=== PATIENT | male | born 1945 | race Caucasian/White ===

== ENCOUNTER 2021-02-02 14:12 | Emergency (ER) | payer MEDICARE ==
[2021-02-02] MEDS ORDERED: Dextrose 5%-Lactated Ringers 1,000 ML IV SCH (14:45)
[2021-02-02 15:02] LABS: ACETAMINOPHEN <2.0 ug/mL; BLOOD UREA NITROGEN,BUN 15 mg/dL (7.0-18.0); CARBON DIOXIDE,CO2 28.2 mmol/L (21.0-32.0); CHLORIDE,CL 101 mmol/L (98-107); GLUCOSE RANDOM 120 mg/dL (74-106); LIPASE 68 U/L (73-393); POTASSIUM,K 3.7 mmol/L (3.5-5.1); SODIUM,NA 137 mmol/L (136-148)
--- NOTE | 2021-02-02 15:08 | EDM.PDOC ---
ED HPI GENERAL MEDICAL PROBLEM - General Chief Complaint: General Stated Complaint: POSSIBLE STOKE Time Seen by Provider: 02/02/21 14:18 - History of Present Illness INITIAL COMMENTS - FREE TEXT/NARRATIVE: CHIEF COMPLAINT(S): Confusion HISTORY OF PRESENT ILLNESS: This is a 75-year-old man without any reported past medical history comes to the emergency department with a chief complaint of confusion. The patient states that he does not think that he is confused and was sent here by me. He states that his neck thinks that he is having difficulty with his memory. He states that he has had some hit and miss on his memory. He states that this is going on for approximately 2 weeks and he does not know what happened. He denies any head injury or loss of consciousness. He states starting 2 weeks ago he woke up one morning and felt like he was off balance and walking. He states that he had any food or drink for the last 2 weeks as nonstop which is nonbloody and nonbilious. He denies any chest pain, shortness of breath, abdominal pain. He states that today though he does not feel like he is falling or confused. He states that he does not feel the symptoms at all. Per the niece: She states that she saw him approximately 1 month ago and he has lost a significant amount of weight in that time. She states that he has been getting more forgetful and does not seem to want to eat. She states that he has not been peeing as much as normal and she believes that him vomiting has been greater than 2 weeks. She states that he lives alone. REVIEW OF SYSTEMS: Constitutional: Denies fever, chills. Eyes: Denies eye pain Ears, Nose, Mouth, & Throat: Denies earache Cardiovascular: Denies chest pain Respiratory: Denies shortness of breath Gastrointestinal: Positive for vomiting. Denies nausea, diarrhea, medic easier, hematemesis, bilious emesis genitourinary: Positive for decreased urination. Denies hematuria Skin:Denies a rash MSK: Denies joint pain Neurological: Positive for trouble walking. Denies headache or blurred vision, numbness, tingling, weakness Psychiatric: Denies depression PAST MEDICAL HISTORY: As per history of present illness and as reviewed below otherwise noncontributory. SURGICAL HISTORY: As per history of present illness and as reviewed below otherwise noncontributory. SOCIAL HISTORY: As per history of present illness and as reviewed below otherwise noncontributory. FAMILY HISTORY: As per history of present illness and as reviewed below otherwise noncontributory. EXAMINATION OF ORGAN SYSTEMS/BODY AREAS: Constitutional: Blood pressure was 154/97, heart rate 115, respiratory rate 18 with an oxygen saturation of 98% on room air. Temperature 36.1 General: Elderly man who does not appear to be in acute distress psychiatric: Appropriate mood and affect. Eyes: No scleral icterus or conjunctival erythema prosthetic eye ENMT: Moist mucous membranes. No pharyngeal erythema bilateral tympanic membranes without effusion or erythema. Cardiovascular: Regular, rate, and rhythm. No gallops, murmurs, or rubs. Bilateral upper extremity pulses symmetric and intact. No peripheral edema. No JVD. Respiratory: Lungs clear to auscultation bilaterally. No wheezes, rales, or rhonchi. Gastrointestinal: Soft, non-tender, non-distended. Normoactive bowel sounds Genitourinary: No suprapubic tenderness Musculoskeletal: Normal range of motion. Skin: No lesions or abrasions. Neurological: AOx4. CN grossly intact. Stregth 5/5 in bilateral upper and lower extremity. Sensation is intact bilaterally in upper and lower extremity. Gait appears normal. Finger to nose, heel to ndiaye, rapid alternating movements intact. MEDICAL DECISION MAKING AND COURSE IN THE ED WITH INTERPRETATION/REVIEW OF DIAGNOSTIC STUDIES: This is a 75-year-old man without any significant past medical history who comes to the emergency department with concerns over 2 weeks of vomiting, lost weight, and memory issues who is tachycardic and borderline hypotensive who is neurologically intact and acting appropriately. At this time we did obtain screening laboratory analysis including CBC, CMP, troponin, EKG and chest x-ray. We obtain a urinalysis and will obtain a D-dimer. Is uncertain as to why the patient may have fallen or is having memory issues however pulmonary embolism is on the differential. Will obtain CT Noncon head for evaluation of any intracranial abnormality. Laboratory: CBC reveals thrombocytopenia with a platelet count of 142 otherwise unremarkable. INR is normal. D-dimer is elevated at 1.31. CMP reveals hyperglycemia at 119 and 120 otherwise unremarkable. TSH is normal. Troponin is negative. Serum salicylate and Tylenol are negative. Covid is negative. Urinalysis showed glucosuria and trace blood otherwise no abnormality. The radiological images were viewed by myself along with reading the report from the radiologist. Chest x-ray does not reveal acute cardiopulmonary process. CT head without contrast reveals no acute intracranial head or mass. There is generalized parenchymal volume loss with periventricular hyperlucency is likely reflecting chronic small vessel ischemic changes. Given the elevated D-dimer did obtain a CTA of the chest The radiological images were viewed by myself along with reading the report from the radiologist. CTA of the chest reveals no pulmonary artery embolism. There is lower lobe predominant posterior groundglass opacity with mild thickening of the small airways. After imaging to discuss results with the patient and his niece at bedside. At this time I did discuss that his work-up is normal. Given that he has not seen a primary care physician I did discuss at this time that there could be some dementia and that they need to follow with a primary care physician for further work-up and monitoring. In addition it was at this time that the patient informed the niece and I that he was drinking whiskey and that is why he was vomiting and had trouble walking. They were amenable to discharge at this time and had no further questions DISPOSITION: The patient was discharged home in stable condition. The patient will follow up with primary care physician in 3 to 5 days CONDITION: Fair PROCEDURES: None FINAL IMPRESSION(S)/DIAGNOSES: 1. acute encounter for medical screening examination Eitan Bunn M.D. - Related Data Allergies Allergy/AdvReac Type Severity Reaction Status Date / Time Unable to Assess Allergy Unverified 02/02/21 14:15 Home Meds: Home Meds . [Unable to Verify Home Med List] 02/02/21 [History] Past Medical History - Past Health History Medical/Surgical History: Denies Medical/Surgical History ED ROS GENERAL - Review of Systems Review Of Systems: See Below ED EXAM, GENERAL - Physical Exam Exam: See Below Course - Vital Signs Last Recorded V/S: Last Vital Signs Temp 36.1 C 02/02/21 14:16 Pulse 106 H 02/02/21 17:42 Resp 18 02/02/21 17:42 BP 136/75 02/02/21 17:42 Pulse Ox 98 02/02/21 17:42 - Orders/Labs/Meds Labs: Laboratory Tests 02/02/21 02/02/21 02/02/21 Range/Units 14:11 14:18 14:18 WBC 8.71 (4.0-11.0) K/uL RBC 5.27 (4.50-5.90) M/uL Hgb 17.1 H (13.0-17.0) g/dL Hct 45.5 (38.0-50.0) % MCV 86.3 (80.0-98.0) fL MCH 32.4 H (27.0-32.0) pg MCHC 37.6 H (31.0-37.0) g/dL RDW Std Deviation 39.7 (28.0-62.0) fl RDW Coeff of Rigo 13 (11.0-15.0) % Plt Count 142 L (150-400) K/uL MPV 11.60 (7.40-12.00) fL Neut % (Auto) 62.0 (48.0-80.0) % Lymph % (Auto) 27.6 (16.0-40.0) % [place] % (Auto) 7.7 (0.0-15.0) % Eos % (Auto) 2.4 (0.0-7.0) % Baso % (Auto) 0.3 (0.0-1.5) % Neut # (Auto) 5.4 (1.4-5.7) K/uL Lymph # (Auto) 2.4 (0.6-2.4) K/uL [place] # (Auto) 0.7 (0.0-0.8) K/uL Eos # (Auto) 0.2 (0.0-0.7) K/uL Baso # (Auto) 0.0 (0.0-0.1) K/uL Nucleated RBC % 0.0 /100WBC Nucleated RBCs # 0 K/uL INR 1.09 D-Dimer, Quantitative (0.0-0.50) mg/L FEU Sodium (136-148) mmol/L Potassium (3.5-5.1) mmol/L Chloride (98-107) mmol/L Carbon Dioxide (21.0-32.0) mmol/L BUN (7.0-18.0) mg/dL Creatinine (0.8-1.3) mg/dL Est Cr Clr Drug Dosing Estimated GFR (MDRD) ml/min Glucose (74-106) mg/dL POC Glucose 119 H (70-99) mg/dL Calcium (8.5-10.1) mg/dL Magnesium (1.8-2.4) mg/dL Total Bilirubin (0.2-1.0) mg/dL AST (15-37) IU/L ALT (14-63) IU/L Alkaline Phosphatase (46-116) U/L Creatine Kinase (26-308) U/L Troponin I (0.000-0.056) ng/mL Total Protein (6.4-8.2) g/dL Albumin (3.4-5.0) g/dL Globulin (2.6-4.0) g/dL Albumin/Globulin Ratio (0.9-1.6) Lipase (73-393) U/L TSH, Ultra Sensitive (0.36-3.74) uIU/mL Urine Color Urine Appearance Urine pH (5.0-8.0) Ur Specific [place] (1.001-1.035) Urine Protein (NEGATIVE) mg/dL Urine Glucose (UA) (NEGATIVE) mg/dL Urine Ketones (NEGATIVE) mg/dL Urine Occult Blood (NEGATIVE) Urine Nitrite (NEGATIVE) Urine Bilirubin (NEGATIVE) Urine Urobilinogen (<2.0) EU/dL Ur Leukocyte Esterase (NEGATIVE) Urine RBC (0-2/HPF) Urine WBC (0-5/HPF) Ur Epithelial Cells (NONE-FEW) Urine Bacteria (NEGATIVE) Salicylates (0-20) mg/dL Acetaminophen ug/mL SARS-CoV-2 RNA (JANAK) (NEGATIVE) 02/02/21 02/02/21 02/02/21 Range/Units 14:18 14:18 14:43 WBC (4.0-11.0) K/uL RBC (4.50-5.90) M/uL Hgb (13.0-17.0) g/dL Hct (38.0-50.0) % MCV (80.0-98.0) fL MCH (27.0-32.0) pg MCHC (31.0-37.0) g/dL RDW Std Deviation (28.0-62.0) fl RDW Coeff of Rigo (11.0-15.0) % Plt Count (150-400) K/uL MPV (7.40-12.00) fL Neut % (Auto) (48.0-80.0) % Lymph % (Auto) (16.0-40.0) % [place] % (Auto) (0.0-15.0) % Eos % (Auto) (0.0-7.0) % Baso % (Auto) (0.0-1.5) % Neut # (Auto) (1.4-5.7) K/uL Lymph # (Auto) (0.6-2.4) K/uL [place] # (Auto) (0.0-0.8) K/uL Eos # (Auto) (0.0-0.7) K/uL Baso # (Auto) (0.0-0.1) K/uL Nucleated RBC % /100WBC Nucleated RBCs # K/uL INR D-Dimer, Quantitative 1.31 H (0.0-0.50) mg/L FEU Sodium 137 (136-148) mmol/L Potassium 3.7 (3.5-5.1) mmol/L Chloride 101 (98-107) mmol/L Carbon Dioxide 28.2 (21.0-32.0) mmol/L BUN 15 (7.0-18.0) mg/dL Creatinine 1.3 (0.8-1.3) mg/dL Est Cr Clr Drug Dosing TNP Estimated GFR (MDRD) 54.1 ml/min Glucose 120 H (74-106) mg/dL POC Glucose (70-99) mg/dL Calcium 9.4 (8.5-10.1) mg/dL Magnesium 1.9 (1.8-2.4) mg/dL Total Bilirubin 0.9 (0.2-1.0) mg/dL AST 30 (15-37) IU/L ALT 36 (14-63) IU/L Alkaline Phosphatase 84 (46-116) U/L Creatine Kinase 177 (26-308) U/L Troponin I < 0.050 (0.000-0.056) ng/mL Total Protein 8.1 (6.4-8.2) g/dL Albumin 4.3 (3.4-5.0) g/dL Globulin 3.8 (2.6-4.0) g/dL Albumin/Globulin Ratio 1.1 (0.9-1.6) Lipase 68 L (73-393) U/L TSH, Ultra Sensitive 1.47 (0.36-3.74) uIU/mL Urine Color Urine Appearance Urine pH (5.0-8.0) Ur Specific [place] (1.001-1.035) Urine Protein (NEGATIVE) mg/dL Urine Glucose (UA) (NEGATIVE) mg/dL Urine Ketones (NEGATIVE) mg/dL Urine Occult Blood (NEGATIVE) Urine Nitrite (NEGATIVE) Urine Bilirubin (NEGATIVE) Urine Urobilinogen (<2.0) EU/dL Ur Leukocyte Esterase (NEGATIVE) Urine RBC (0-2/HPF) Urine WBC (0-5/HPF) Ur Epithelial Cells (NONE-FEW) Urine Bacteria (NEGATIVE) Salicylates 0.2 (0-20) mg/dL Acetaminophen <2.0 ug/mL SARS-CoV-2 RNA (JANAK) NEGATIVE (NEGATIVE) 02/02/21 Range/Units 16:45 WBC (4.0-11.0) K/uL RBC (4.50-5.90) M/uL Hgb (13.0-17.0) g/dL Hct (38.0-50.0) % MCV (80.0-98.0) fL MCH (27.0-32.0) pg MCHC (31.0-37.0) g/dL RDW Std Deviation (28.0-62.0) fl RDW Coeff of Rigo (11.0-15.0) % Plt Count (150-400) K/uL MPV (7.40-12.00) fL Neut % (Auto) (48.0-80.0) % Lymph % (Auto) (16.0-40.0) % [place] % (Auto) (0.0-15.0) % Eos % (Auto) (0.0-7.0) % Baso % (Auto) (0.0-1.5) % Neut # (Auto) (1.4-5.7) K/uL Lymph # (Auto) (0.6-2.4) K/uL [place] # (Auto) (0.0-0.8) K/uL Eos # (Auto) (0.0-0.7) K/uL Baso # (Auto) (0.0-0.1) K/uL Nucleated RBC % /100WBC Nucleated RBCs # K/uL INR D-Dimer, Quantitative (0.0-0.50) mg/L FEU Sodium (136-148) mmol/L Potassium (3.5-5.1) mmol/L Chloride (98-107) mmol/L Carbon Dioxide (21.0-32.0) mmol/L BUN (7.0-18.0) mg/dL Creatinine (0.8-1.3) mg/dL Est Cr Clr Drug Dosing Estimated GFR (MDRD) ml/min Glucose (74-106) mg/dL POC Glucose (70-99) mg/dL Calcium (8.5-10.1) mg/dL Magnesium (1.8-2.4) mg/dL Total Bilirubin (0.2-1.0) mg/dL AST (15-37) IU/L ALT (14-63) IU/L Alkaline Phosphatase (46-116) U/L Creatine Kinase (26-308) U/L Troponin I (0.000-0.056) ng/mL Total Protein (6.4-8.2) g/dL Albumin (3.4-5.0) g/dL Globulin (2.6-4.0) g/dL Albumin/Globulin Ratio (0.9-1.6) Lipase (73-393) U/L TSH, Ultra Sensitive (0.36-3.74) uIU/mL Urine Color YELLOW Urine Appearance CLEAR Urine pH 6.5 (5.0-8.0) Ur Specific [place] 1.010 (1.001-1.035) Urine Protein NEGATIVE (NEGATIVE) mg/dL Urine Glucose (UA) 100 H (NEGATIVE) mg/dL Urine Ketones NEGATIVE (NEGATIVE) mg/dL Urine Occult Blood TRACE-INTACT H (NEGATIVE) Urine Nitrite NEGATIVE (NEGATIVE) Urine Bilirubin NEGATIVE (NEGATIVE) Urine Urobilinogen 0.2 (<2.0) EU/dL Ur Leukocyte Esterase NEGATIVE (NEGATIVE) Urine RBC 0-1 (0-2/HPF) Urine WBC NONE SEEN (0-5/HPF) Ur Epithelial Cells RARE (NONE-FEW) Urine Bacteria NOT SEEN (NEGATIVE) Salicylates (0-20) mg/dL Acetaminophen ug/mL SARS-CoV-2 RNA (JANAK) (NEGATIVE) Meds: Medications Discontinued Medications Generic Name Dose Route Start Last Admin Trade Name Freq PRN Reason Stop Dose Admin Dextrose/Lactated Ringer's 1,000 mls @ 999 mls/hr 02/02/21 14:45 02/02/21 14:39 Dextrose 5%-Lactated Ringers IV 999 mls/hr ASDIRECTED MELVI Administration Iopamidol 100 ml 02/02/21 18:14 02/02/21 18:15 Iopamidol 755 Mg/Ml 500 Ml Multipack Bottle IVPUSH 02/02/21 18:15 100 ml ONETIME STA Administration Departure - Departure Time of Disposition: 17:14 Disposition: Home, Self-Care 01 Condition: Fair Clinical Impression: Encounter for medical screening examination - Discharge Information *PRESCRIPTION DRUG MONITORING PROGRAM REVIEWED*: No *COPY OF PRESCRIPTION DRUG MONITORING REPORT IN PATIENT VENTURA: No Instructions: Health Maintenance After Age 65, Medical Screening Exam, Dementia, [id number] Referrals: PCP,None [Primary Care Provider] - Forms: ED Department Discharge Additional Instructions: Mr. Diop you were evaluated today on an emergent basis. All of your lab work was within normal limits and the scan of your head did reveal some brain volume loss which is likely due to age otherwise no bleeding or other abnormality. The CT of your chest as discussed did show some evidence of some opacities however you do not have a fever and there is no signs of swelling on exam so I want you to monitor your self for any cough or fever or shortness of breath. If you have all of those I would like you to return to the emergency department. In addition given the short-term memory loss I do recommend that you set up a primary care physician appointment within the next week. I would discuss dementia screening and obtaining further screening labs given your age. In addition as discussed it is important that you refrain from alcohol use as this is probably why you had the vomiting and feeling unsteady with walking. Your walking today was normal. [facility] [address] [place] [id number] [facility] [address] [place] [address] The patient is informed of any results of their evaluation and diagnostic workup and all questions are answered. They are given discharge instructions and return precautions. The patient is stable for discharge. The patient states they understand and agree with the plan and that they will return if their symptoms get worse or if they have any new concerns. The following information is given to patients seen in the emergency department who are being discharged to home. This information is to outline your options for follow-up care. We provide all patients seen in our emergency department with a follow-up referral. The need for follow-up, as well as the timing and circumstances, are variable depending upon the specifics of your emergency department visit. If you don't have a primary care physician on staff, we will provide you with a referral. We always advise you to contact your personal physician following an emergency department visit to inform them of the circumstance of the visit and for follow-up with them and/or the need for any referrals to a consulting specia list. The emergency department will also refer you to a specialist when appropriate. This referral assures that you have the opportunity for follow-up care with a specialist. All of these measure are taken in an effort to provide you with optimal care, which includes your follow-up. Under all circumstances we always encourage you to contact your private physician who remains a resource for coordinating your care. When calling for follow-up care, please make the office aware that this follow-up is from your recent emergency room visit. If for any reason you are refused follow-up, please contact the [facility] Emergency Department at and asked to speak to the emergency department charge nurse. Sepsis Event Note (ED) - Evaluation Sepsis Screening Result: No Definite Risk
--- NOTE | 2021-02-02 15:12 | PCM.EKG ---
#1 Interpretation EKG Date: 02/02/21 Time: 14:15 Rhythm: NSR Rate (Beats/Min): 101 [place]: Normal P-Wave: Present QRS: Normal ST-T: Normal QT: Normal DE/PQ Interval: 207 Comparison: NA - No Prior EKG EKG Interpretation Comments: Sinus Rhythm with prolonged DE
--- NOTE | 2021-02-02 15:34 | CR ---
HISTORY: Altered mentation. TECHNIQUE: Portable frontal view the chest. COMPARISON: None. FINDINGS: No airspace consolidation. No pleural effusion or pneumothorax. Pulmonary vasculature and cardiomediastinal silhouette are within normal limits. Degenerative arthrosis right AC joint. IMPRESSION: No cardiopulmonary abnormality. Dictated by Rick Fritz MD @ 02/02/2021 3:33:07 PM (Electronically Signed)
--- NOTE | 2021-02-02 15:36 | CT ---
Indication: Altered mental status Technique: Noncontrast head Comparison: No comparison Findings: Generalized parenchymal volume loss with periventricular hypo lucencies likely reflecting chronic small vessel ischemic change. No acute intracranial hemorrhage or mass. No midline shift. No abnormal extra-axial air fluid collections are seen. Paranasal sinuses, mastoid air cells, skull and scalp appear unremarkable. Right globe prosthesis. Impression: No acute intracranial hemorrhage or mass Please note that all CT scans at this facility use dose modulation, iterative reconstruction, and/or weight-based dosing when appropriate to reduce radiation dose to as low as reasonably achievable. Dictated by Angela Castillo MD @ 02/02/2021 3:35:09 PM (Electronically Signed)
--- NOTE | 2021-02-02 16:28 | CT ---
Indication: Elevated D-dimer. Comparison: None available. Technique: CTA of the chest. 100 cc of Omnipaque 370. Findings: Adequate contrast bolus. Evaluation limited however by severe motion artifact at the segmental and subsegmental level. No convincing evidence of pulmonary artery embolism however. Severe coronary artery calcification. Thoracic aortic calcification. No thoracic aortic aneurysm. The central airways are patent. Lower lobe predominant and posterior ground-glass opacity with mild thickening of the smaller airways seen. No pneumothorax or pleural effusion. No axillary, mediastinal lymphadenopathy. Mildly prominent bilateral hilar lymph nodes are not pathologically enlarged. Multilevel degenerative changes in the spine with mild anterior wedging of several vertebral bodies. Mild fluid distention and air-fluid level within the stomach. Adrenal glands appear unremarkable. Small gallstones or sludge is seen within the gallbladder. Impression: 1. No pulmonary artery embolism. 2. Lower lobe predominant and posterior ground-glass opacity with mild thickening of the smaller airways. This could either be a pattern of mosaic attenuation, or ground-glass opacity. If mosaic attenuation the differential includes reactive airways, constrictive bronchiolitis or hypersensitivity pneumonitis. If ground-glass opacity differential is mainly edema or atypical/viral infection. Correlate clinically. Please note that all CT scans at this facility use dose modulation, iterative reconstruction, and/or weight-based dosing when appropriate to reduce radiation dose to as low as reasonably achievable. Dictated by Gordy Hogan MD @ 02/02/2021 4:26:21 PM (Electronically Signed)
[2021-02-02] MEDS ORDERED: Iopamidol 755 MG/ML 500 ML Multipack Bottle IVPUSH STA (18:14)
== END 2021-02-02 17:43 | disposition home or self-care (01) ==
LOC: MW.ED 14:12
DX: Z00.8 Encounter for other general examination (principal); Z20.822 Contact with and (suspected) exposure to COVID-19
CPT/HCPCS: 36415; 70450; 71045; 71275; 80053; 80143; 80179; 81001; 82550; 82947; 83690; 83735; 84443; 84484; 85025; 85379; 85610; 93005; 99285; J7121; Q9967; U0002; 99283